=== PATIENT | male | born 1945 | race Caucasian/White ===

== ENCOUNTER 2018-05-18 14:30 | Outpatient (REF) | payer MEDICARE, SELFPAY ==
[2018-05-18 15:25] LABS: BUN 19 mg/dL (7-18); CREATININE 0.94 mg/dL (0.70-1.30)
== END 2018-05-18 14:50 ==
LOC: LBN 14:30
PROVIDERS: PCP Family Medicine; Visit Provider Family Medicine
DX: Z04.9 Encounter for examination and observation for unspecified reason (principal); F25.9 Schizoaffective disorder, unspecified; I10 Essential (primary) hypertension; E11.9 Type 2 diabetes mellitus without complications; E78.5 Hyperlipidemia, unspecified
CPT/HCPCS: 84520; 82565

== ENCOUNTER 2018-05-19 09:56 | Emergency (ER) | payer MEDICARE, SELFPAY ==
[2018-05-19] VITALS (33 sets, daily range): BP systolic 112–147; BP diastolic 71–85; PULSE 85–116; RESP 1–36; TEMP 36.3; O2SAT 88–99
--- NOTE | 2018-05-19 10:13 | DI.RAD_ITS ---
SYMPTOMS/DIAGNOSIS: CONCERN FOR ASPIRATION, SEVERE PORTABLE SEMI-ERECT CHEST: Comparison is made with exam performed earlier the same day. The lungs are not well inflated on the current exam. There is a question of mildly increased densities at the lung bases, likely reflecting atelectasis. Infiltrates or tiny effusions could not be excluded. The aorta is again noted to be tortuous. Mild scarring and fibrotic changes are again noted. IMPRESSION: Limited exam due to poor inflation. Question of bibasilar densities.
[2018-05-19] MEDS: Albuterol/Ipratropium 3 ML UPD VIAL UPD (10:27)
--- NOTE | 2018-05-19 10:30 | W.ED.GENAD ---
Discharge Plan Disposition Patient Disposition: SNF (LEVEL 1) [facility] Condition: Good Discharge Details Chief Complaint: SOB Clinical Impression: Mucus plugging of bronchi Reason For Visit: ZEINA Primary Care Provider: Tim Colon ED Provider: Goran Howell Home Meds and New Rx's Prescriptions: No Action metformin 500 MG tablet 500 mg PO BID@0800,1700 RF: 0 acetaminophen 325 MG tablet 650 mg PO 6X/DAY PRNRF: 0 clonazepam 0.5 MG tablet 0.5 mg PO DAILY RF: 0 levothyroxine 25 MCG tablet 25 mcg PO DAILY@0730 RF: 0 pravastatin 80 MG tablet 80 mg PO DAILY RF: 0 magnesium hydroxide [Milk of Magnesia] 30 ML suspension 30 ml PO PRN PRNRF: 0 tamsulosin 0.4 MG capsule 0.4 mg PO DAILY RF: 0 bisacodyl 10 MG suppository 10 mg [place] PRN PRNRF: 0 divalproex [Depakote ER] 500 MG tablet extended release 24 hr 500 mg PO DAILY RF: 0 docusate sodium [Colace] 100 MG capsule 100 mg PO BID RF: 0 risperidone 0.5 MG tablet 0.5 mg PO DAILY RF: 0 quetiapine 150 MG tablet extended release 24 hr 150 mg PO HS RF: 0 Finasteride 5 MG Tablet 5 mg PO HS RF: 0 potassium chloride [Klor-Con M10] 10 MEQ tablet,ER particles/crystals 20 meq PO BID RF: 0 furosemide 80 MG tablet 40 mg PO BID Qty: 0 RF: 0 aspirin 325 MG tablet 325 mg PO DAILY RF: 0 oseltamivir [Tamiflu] 75 MG capsule 75 mg PO DAILY RF: 0 Discharge Instructions Instructions: Acute Cough (ED) Additional Instructions: Please continue chest physiotherapy, aggressive suctioning, and pulmonary toilet to prevent any future mucous plugs. Please use expectorants as needed. If you notice any worsening of your symptoms, or any new symptoms such as vomiting, diarrhea, fever, chills, shortness of breath, chest pain, numbness, weakness, or fainting , please return immediately to the emergency department for reevaluation. Please follow up with your primary care provider as soon as possible for reassessment and reevaluation. As always, it was a pleasure participating in your medical care today. Medical Decision Making This is a 72-year-old male with a past medical history of dysphasia, diabetes, and dementia. No significant previous cardiac disease. He is DNR/DNI. Patient woke up this morning and had notable coughing episode, he is noted to be hypoxic on initial assessment by EMS, he was placed on a nonrebreather his oxygen came up to the 90s. Here in the emergency department he has no complaint of chest pain, but does demonstrate significantly rhonchorous breath sounds. We are about to start BiPAP on the patient had a second notable coughing episode and expectorated a large amount of sputum. After this his breathing notably improved and he had no additional need for supplemental oxygen after this. Although aspiration pneumonia is on the differential, this significantly increases likelihood of a mucous plug that was the cause of his initial symptomatology. We will still continue the workup for any potential infectious etiology with his associated tachycardia, with his notable improvement in oxygenation, I feel that the patient has a significantly improved respiratory status and does demonstrate notable stability. If his workup is relatively benign and his vital signs remained stable he may be a candidate for discharge back to his rehab facility with his resolution of his mucous plug. EKG 10: 03 Rate 111, [place] 132, QTc 416, QRS 82, sinus tachycardia, RSR in V1, nonspecific ST elevation. Patient has [address] elevation in lead III, no elevation in lead II or aVF. Questionable J-point RSR elevation in V1 no other ST elevation, no reciprocal ST depressions anywhere. EKG 10: 42 Rate 112, sinus tachycardia, intervals normal, no ST elevations or depressions whatsoever, no Q waves, no T wave inversions. Chest x-ray findings: FINDINGS: Lungs: Unremarkable. No consolidation. Pleural space: Unremarkable. No pleural effusion. No pneumothorax. Heart/Mediastinum: Unremarkable. No cardiomegaly. Bones/joints: Dextroscoliosis. Moderate thoracic spondylosis. 12:11 PM Patient's laboratory workup has returned relatively benign, minimal white count of 11.59, no bandemia. ABG demonstrates minimal retention with a PCO2 of 58, but normal pH, suggesting a chronic component. Electrolytes are normal, BUN creatinine ratio is slightly elevated suggesting mild dehydration which would correlate well with his clinical picture. Initial lactate was within normal limits and does not require redraw EKG, troponin are normal. After the expectorant of the mucous plug the patient continues to do very well. Chest x-ray is negative per virtual radiology. Being hemodynamically stable, nose showing no signs of significant respiratory compromise at this time, having a reassuring laboratory workup I feel he can be safely discharged home as a source of his initial symptomatology was a mucous plug. I did contact the physician cargo operations agent at his facility Dr. Belle, and discussed the case with her. She agreed with the assessment and plan as well as the plan for returning him back to the facility. I have extensively reviewed the treatment plan with the patient. I have addressed all patient concerns at this time. I have also discussed the plan with the facility physician and they agree with the current assessment and plan and have agreed to assume responsibility for the patient. All parties demonstrate verbal understanding and agreement with our assessment and plan at this time. HPI General Date/Time Provider Initiated Documentation: 05/19/18 10:02. HPI Narrative: This is a 72-year-old male with a past medical history of diabetes mellitus, dementia, hypertension, high cholesterol, hypothyroid, who presents today for evaluation of difficulty breathing. Per the nursing staff at his rehab facility he woke up this morning coughing, when EMS arrived his oxygen was noted to be 79-82%. He normally does not use any oxygen for supplementation. They put him on a nonrebreather and the patient came up to the 90s, physical exam by paramedics demonstrated significantly decreased/absent breath sounds in the right lower lung chung, with severe rhonchi. The patient does have a history of using thickened liquids, no history of aspiration in the past, however he does have a history of mild dysphagia. Currently the patient denies any significant complaints. He denies any chest pain, arm pain or neck pain. He states he feels much better with nonrebreather. He denies any recent hemoptysis or choking episodes. He denies any vomiting or diarrhea. He has no other complaints at this time. He denies any recent pertinent surgeries or pertinent family history. Related Data Home Medications Medication Instructions Recorded Confirmed Finasteride 5 mg PO HS 04/18/17 05/19/18 acetaminophen 650 mg PO 6X/DAY PRN 04/18/17 05/19/18 bisacodyl 10 mg KS PRN PRN 04/18/17 05/19/18 clonazepam 0.5 mg PO DAILY 04/18/17 05/19/18 divalproex [Depakote ER] 500 mg PO DAILY 04/18/17 05/19/18 docusate sodium [Colace] 100 mg PO BID 04/18/17 05/19/18 levothyroxine 25 mcg PO DAILY@0730 04/18/17 05/19/18 magnesium hydroxide [Milk of 30 ml PO PRN PRN 04/18/17 05/19/18 Magnesia] metformin 500 mg PO BID@0800,1700 04/18/17 05/19/18 pravastatin 80 mg PO DAILY 04/18/17 05/19/18 quetiapine 150 mg PO HS 04/18/17 05/19/18 risperidone 0.5 mg PO DAILY 04/18/17 05/19/18 tamsulosin 0.4 mg PO DAILY 04/18/17 05/19/18 furosemide 40 mg PO BID #0 04/20/17 05/19/18 potassium chloride [Klor-Con M10] 20 meq PO BID 04/20/17 05/19/18 aspirin 325 mg PO DAILY 10/15/17 05/19/18 oseltamivir [Tamiflu] 75 mg PO DAILY 10/15/17 05/19/18 Previous Rx's Medication Instructions Recorded furosemide 40 mg PO BID #0 04/20/17 potassium chloride [Klor-Con M10] 20 meq PO BID 04/20/17 Allergies Allergy/AdvReac Type Severity Reaction Status Date / Time simvastatin Allergy Unverified 05/19/18 11:08 General Stated Complaint: SOB MARY: 2 Review of Systems Review of Systems All systems reviewed & are unremarkable except as noted in HPI and below Exam Narrative Exam Narrative: 1.Const: Well-nourished, Well-developed, appearing stated age 2.Eyes: PERRL, no conjunctival injection, and symmetrical lids. 3.ENT: Atraumatic external nose and ears. Dry MM. Neck: Symmetric, trachea midline, No thyromegaly. 4.CVS: +S1/S2, No murmurs or gallops. Peripheral pulses 2+ and equal in all extremities. Brisk capillary refill in all extremities. 5.RESP: Unlabored respiratory effort. Severe rhonchi throughout, decreased breath sounds in the right lower lung chung. Mild crackles throughout, no significant wheezes 6.GI: Soft, Nontender/Nondistended, No hepatosplenomegaly. No guarding or rebound. 7.MSK: Normocephalic/Atraumatic, Extremities w/o deformity or ttp No cyanosis or clubbing, Normal movement of all extremities 8.Skin: Warm, Dry. No rashes or lesions. 9.Neuro: layer out II-XII grossly intact. Sensation grossly intact, no focal neurologic deficits. 10.Psych: (AAO) x3. Appropriate mood and affect, patient demonstrates an intact gag reflex, he is able to move his nonrebreather without difficulty. Shows no signs of significant confusion or obtundation. Course Vital Signs Temperature 36.3 C L 05/19/18 10:02 Pulse 111 H 05/19/18 10:02 Respiratory Rate 21 05/19/18 10:02 Blood Pressure 147/81 H 05/19/18 10:02 Pulse Oximetry 94 L 05/19/18 10:02 Temperature 36.3 C L 05/19/18 10:02 Temperature Source Skin 05/19/18 10:02 Pulse 111 H 05/19/18 10:02 Respiratory Rate 21 05/19/18 10:02 Respiratory Effort Non-Labored 05/19/18 10:02 Blood Pressure 147/81 H 05/19/18 10:02 Blood Pressure Position Supine 05/19/18 10:02 Pulse Oximetry 94 L 05/19/18 10:02 Oxygen Delivery Method Non-Rebreather 05/19/18 10:02 Oxygen Flow Rate 15 05/19/18 10:02 End Tidal Co2 0 05/19/18 10:02 Pain Level 0 05/19/18 10:02 Lab/Test Results Lab/Test Results: 05/19/18 10:12 Blood Blood Culture - Pending 05/19/18 10:12 Blood Blood Culture - Pending
--- NOTE | 2018-05-19 10:36 | ED.GENADUL_ITS ---
Discharge Plan Disposition Patient Disposition: SNF (LEVEL 1) [facility] Condition: Good Discharge Details Chief Complaint: SOB Clinical Impression: Mucus plugging of bronchi Reason For Visit: ZEINA Primary Care Provider: Tim Colon ED Provider: Goran Howell Home Meds and New Rx's Prescriptions: No Action metformin 500 MG tablet 500 mg PO BID@0800,1700 RF: 0 acetaminophen 325 MG tablet 650 mg PO 6X/DAY PRNRF: 0 clonazepam 0.5 MG tablet 0.5 mg PO DAILY RF: 0 levothyroxine 25 MCG tablet 25 mcg PO DAILY@0730 RF: 0 pravastatin 80 MG tablet 80 mg PO DAILY RF: 0 magnesium hydroxide [Milk of Magnesia] 30 ML suspension 30 ml PO PRN PRNRF: 0 tamsulosin 0.4 MG capsule 0.4 mg PO DAILY RF: 0 bisacodyl 10 MG suppository 10 mg [place] PRN PRNRF: 0 divalproex [Depakote ER] 500 MG tablet extended release 24 hr 500 mg PO DAILY RF: 0 docusate sodium [Colace] 100 MG capsule 100 mg PO BID RF: 0 risperidone 0.5 MG tablet 0.5 mg PO DAILY RF: 0 quetiapine 150 MG tablet extended release 24 hr 150 mg PO HS RF: 0 Finasteride 5 MG Tablet 5 mg PO HS RF: 0 potassium chloride [Klor-Con M10] 10 MEQ tablet,ER particles/crystals 20 meq PO BID RF: 0 furosemide 80 MG tablet 40 mg PO BID Qty: 0 RF: 0 aspirin 325 MG tablet 325 mg PO DAILY RF: 0 oseltamivir [Tamiflu] 75 MG capsule 75 mg PO DAILY RF: 0 Discharge Instructions Instructions: Acute Cough (ED) Additional Instructions: Please continue chest physiotherapy, aggressive suctioning, and pulmonary toilet to prevent any future mucous plugs. Please use expectorants as needed. If you notice any worsening of your symptoms, or any new symptoms such as vomiting, diarrhea, fever, chills, shortness of breath, chest pain, numbness, weakness, or fainting , please return immediately to the emergency department for reevaluation. Please follow up with your primary care provider as soon as possible for reassessment and reevaluation. As always, it was a pleasure participating in your medical care today. Medical Decision Making This is a 72-year-old male with a past medical history of dysphasia, diabetes, and dementia. No significant previous cardiac disease. He is DNR/ DNI. Patient woke up this morning and had notable coughing episode, he is noted to be hypoxic on initial assessment by EMS, he was placed on a nonrebreather his oxygen came up to the 90s. Here in the emergency department he has no complaint of chest pain, but does demonstrate significantly rhonchorous breath sounds. We are about to start BiPAP on the patient had a second notable coughing episode and expectorated a large amount of sputum. After this his breathing notably improved and he had no additional need for supplemental oxygen after this. Although aspiration pneumonia is on the differential, this significantly increases likelihood of a mucous plug that was the cause of his initial symptomatology. We will still continue the workup for any potential infectious etiology with his associated tachycardia, with his notable improvement in oxygenation, I feel that the patient has a significantly improved respiratory status and does demonstrate notable stability. If his workup is relatively benign and his vital signs remained stable he may be a candidate for discharge back to his rehab facility with his resolution of his mucous plug. EKG 10: 03 Rate 111, [place] 132, QTc 416, QRS 82, sinus tachycardia, RSR in V1, nonspecific ST elevation. Patient has [address] elevation in lead III, no elevation in lead II or aVF. Questionable J-point RSR elevation in V1 no other ST elevation, no reciprocal ST depressions anywhere. EKG 10: 42 Rate 112, sinus tachycardia, intervals normal, no ST elevations or depressions whatsoever, no Q waves, no T wave inversions. Chest x-ray findings: FINDINGS: Lungs: Unremarkable. No consolidation. Pleural space: Unremarkable. No pleural effusion. No pneumothorax. Heart/Mediastinum: Unremarkable. No cardiomegaly. Bones/joints: Dextroscoliosis. Moderate thoracic spondylosis. 12:11 PM Patient's laboratory workup has returned relatively benign, minimal white count of 11.59, no bandemia. ABG demonstrates minimal retention with a PCO2 of 58, but normal pH, suggesting a chronic component. Electrolytes are normal, BUN creatinine ratio is slightly elevated suggesting mild dehydration which would correlate well with his clinical picture. Initial lactate was within normal limits and does not require redraw EKG, troponin are normal. After the expectorant of the mucous plug the patient continues to do very well. Chest x- ray is negative per virtual radiology. Being hemodynamically stable, nose showing no signs of significant respiratory compromise at this time, having a reassuring laboratory workup I feel he can be safely discharged home as a source of his initial symptomatology was a mucous plug. I did contact the physician consulting hr professional at his facility Dr. Belle, and discussed the case with her. She agreed with the assessment and plan as well as the plan for returning him back to the facility. I have extensively reviewed the treatment plan with the patient. I have addressed all patient concerns at this time. I have also discussed the plan with the facility physician and they agree with the current assessment and plan and have agreed to assume responsibility for the patient. All parties demonstrate verbal understanding and agreement with our assessment and plan at this time. HPI General Date/Time Provider Initiated Documentation: 05/19/18 10:02 . HPI Narrative: This is a 72-year-old male with a past medical history of diabetes mellitus, dementia, hypertension, high cholesterol, hypothyroid, who presents today for evaluation of difficulty breathing. Per the nursing staff at his rehab facility he woke up this morning coughing, when EMS arrived his oxygen was noted to be 79-82%. He normally does not use any oxygen for supplementation. They put him on a nonrebreather and the patient came up to the 90s, physical exam by paramedics demonstrated significantly decreased/ absent breath sounds in the right lower lung chung, with severe rhonchi. The patient does have a history of using thickened liquids, no history of aspiration in the past, however he does have a history of mild dysphagia. Currently the patient denies any significant complaints. He denies any chest pain, arm pain or neck pain. He states he feels much better with nonrebreather. He denies any recent hemoptysis or choking episodes. He denies any vomiting or diarrhea. He has no other complaints at this time. He denies any recent pertinent surgeries or pertinent family history. Related Data Home Medications Medication Instructions Recorded Confirmed Finasteride 5 mg PO HS 04/18/17 05/19/18 acetaminophen 650 mg PO 6X/DAY PRN 04/18/17 05/19/18 bisacodyl 10 mg [place] PRN PRN 04/18/17 05/19/18 clonazepam 0.5 mg PO DAILY 04/18/17 05/19/18 divalproex [Depakote ER] 500 mg PO DAILY 04/18/17 05/19/18 docusate sodium [Colace] 100 mg PO BID 04/18/17 05/19/18 levothyroxine 25 mcg PO DAILY@0730 04/18/17 05/19/18 magnesium hydroxide [Milk of 30 ml PO PRN PRN 04/18/17 05/19/18 Magnesia] metformin 500 mg PO BID@0800,1700 04/18/17 05/19/18 pravastatin 80 mg PO DAILY 04/18/17 05/19/18 quetiapine 150 mg PO HS 04/18/17 05/19/18 risperidone 0.5 mg PO DAILY 04/18/17 05/19/18 tamsulosin 0.4 mg PO DAILY 04/18/17 05/19/18 furosemide 40 mg PO BID #0 04/20/17 05/19/18 potassium chloride [Klor-Con M10] 20 meq PO BID 04/20/17 05/19/18 aspirin 325 mg PO DAILY 10/15/17 05/19/18 oseltamivir [Tamiflu] 75 mg PO DAILY 10/15/17 05/19/18 Previous Rx's Medication Instructions Recorded furosemide 40 mg PO BID #0 04/20/17 potassium chloride [Klor-Con M10] 20 meq PO BID 04/20/17 Allergies Allergy/AdvReac Type Severity Reaction Status Date / Time simvastatin Allergy Unverified 05/19/18 11:08 General Stated Complaint: SOB MARY: 2 Review of Systems Review of Systems All systems reviewed & are unremarkable except as noted in HPI and below Exam Narrative Exam Narrative: 1.Const: Well-nourished, Well-developed, appearing stated age 2.Eyes: PERRL, no conjunctival injection, and symmetrical lids. 3.ENT: Atraumatic external nose and ears. Dry MM. Neck: Symmetric, trachea midline, No thyromegaly. 4.CVS: +S1/S2, No murmurs or gallops. Peripheral pulses 2+ and equal in all extremities. Brisk capillary refill in all extremities. 5.RESP: Unlabored respiratory effort. Severe rhonchi throughout, decreased breath sounds in the right lower lung chung. Mild crackles throughout, no significant wheezes 6.GI: Soft, Nontender/Nondistended, No hepatosplenomegaly. No guarding or rebound. 7.MSK: Normocephalic/Atraumatic, Extremities w/o deformity or ttp No cyanosis or clubbing, Normal movement of all extremities 8.Skin: Warm, Dry. No rashes or lesions. 9.Neuro: hedge fund principal II-XII grossly intact. Sensation grossly intact, no focal neurologic deficits. 10.Psych: (AAO) x3. Appropriate mood and affect, patient demonstrates an intact gag reflex, he is able to move his nonrebreather without difficulty. Shows no signs of significant confusion or obtundation. Course Vital Signs Temperature 36.3 C L 05/19/18 10:02 Pulse 111 H 05/19/18 10:02 Respiratory Rate 21 05/19/18 10:02 Blood Pressure 147/81 H 05/19/18 10:02 Pulse Oximetry 94 L 05/19/18 10:02 Temperature 36.3 C L 05/19/18 10:02 Temperature Source Skin 05/19/18 10:02 Pulse 111 H 05/19/18 10:02 Respiratory Rate 21 05/19/18 10:02 Respiratory Effort Non-Labored 05/19/18 10:02 Blood Pressure 147/81 H 05/19/18 10:02 Blood Pressure Position Supine 05/19/18 10:02 Pulse Oximetry 94 L 05/19/18 10:02 Oxygen Delivery Method Non-Rebreather 05/19/18 10:02 Oxygen Flow Rate 15 05/19/18 10:02 End Tidal Co2 0 05/19/18 10:02 Pain Level 0 05/19/18 10:02 Lab/Test Results Lab/Test Results: 05/19/18 10:12 Blood Blood Culture - Pending 05/19/18 10:12 Blood Blood Culture - Pending
--- NOTE | 2018-05-19 10:39 | DI.VRAD_ITS ---
EXAM: XR Chest, 1 View EXAM DATE/TIME: 05/19/2018 10:16 AM CLINICAL HISTORY: 72 years old, male; Signs and symptoms; Other: Concern for aspiration, severe lowe rhonchi TECHNIQUE: XR of the chest, 1 view. COMPARISON: CR CHEST 2 VIEWS PA,LAT 04/18/2017 1:17 AM FINDINGS: Lungs: Unremarkable. No consolidation. Pleural space: Unremarkable. No pleural effusion. No pneumothorax. Heart/Mediastinum: Unremarkable. No cardiomegaly. Bones/joints: Dextroscoliosis. Moderate thoracic spondylosis. IMPRESSION: Dictated and Authenticated by: Tim Myers MD. Ordering:FIONA GOODMAN MD
[2018-05-19 10:55] LABS: BE (Venous) 6.2 mmol/L (-3-3); HCO3 (Venous) 32 mmol/L (22-28); O2 Sat (Venous) 48 % (70-80); TCO2 (Venous) 30 mmol/L (22-29); pCO2 (Venous) 58 mm/Hg (34-47); pH (Venous) 7.35 (7.32-7.43); pO2 (Venous) 31 mm/Hg (28-44)
[2018-05-19 10:56] LABS: Abs Immature Grans 0.05 k/cumm (0.0-0.09); Absolute Basophil Count 0.02 k/cumm (0.0-0.2); Absolute Lymphocyte Count 1.56 k/cumm (1.2-3.4); Absolute Monocyte Count 0.79 k/cumm (0.11-0.7); Basophils % 0.2; Eosinophils % 0.9; HCT 35.5 % (40.0-50.0); HGB 10.6 g/dL (13.5-17.5); Immature Grans % 0.4; Lymphocytes % 13.5; Mean Corp. HGB Concentration 29.9 g/dL (32.0-36.0); Mean Corpuscular Hemoglobin 26.8 pg (27.0-33.0); Mean Corpuscular Volume 89.6 fL (80-95); Mean Platelet Volume 9.2 fL (8.0-11.0); Monocytes % 6.8; Neutrophils % 78.2; Platelet Count 396 x1000/uL (130-400); RBC 3.96 m/cumm (4.50-6.00); RBC Distribution Width 14.3 % (11.8-14.1); White Blood Cell Count 11.59 k/cumm (4.4-10.8)
[2018-05-19 10:59] LABS: Absolute Neutrophil Count 9.06 k/cumm (1.2-6.7)
[2018-05-19] MEDS: methylPREDNISolone SUCC 125 MG VIAL IVP (11:00)
[2018-05-19] MEDS: Aspirin 300 MG SUPP PR (11:00)
[2018-05-19] MEDS: Normal Saline 500 ML 1000 ML IV (11:00)
[2018-05-19 11:15] LABS: ALT 14 U/L (12-78); AST 23 U/L (15-37); Albumin 2.9 g/dL (3.4-5.0); Alkaline Phosphatase 97 U/L (46-116); Anion Gap 10.2 mmol/L (3-11); BUN 21 mg/dL (7-18); Bilirubin, Total 0.2 mg/dL (0.2-1.0); CO2 31.8 mmol/L (21.0-32.0); CREATININE 1.08 mg/dL (0.70-1.30); Calcium 9.8 mg/dL (8.5-10.1); Chloride 101 mmol/L (98-107); Glucose 157 mg/dL (70-100); Potassium 3.9 mmol/L (3.5-5.1); Sodium 143 mmol/L (136-145); Total Protein 8.4 g/dL (6.4-8.2)
[2018-05-19 11:20] LABS: Lactate 1.5 mmol/L (0.6-1.4)
[2018-05-19 11:34] LABS: Troponin I < 0.02 ng/mL (0.00-0.06)
== END 2018-05-19 12:47 | disposition skilled nursing facility (03) ==
PROVIDERS: Emergency Provider Student in an Organized Health Care Education/Training Program; PCP Family Medicine
DX: J98.09 Other diseases of bronchus, not elsewhere classified (principal); R00.0 Tachycardia, unspecified; I10 Essential (primary) hypertension; E11.9 Type 2 diabetes mellitus without complications; Z79.84 Long term (current) use of oral hypoglycemic drugs
CPT/HCPCS: 36415; 80053; 82805; 87040; 93005; 94640; 96361; 96374; 99285; 71045; 83605; 84484; 85025; 93010; J2930; J7620

== ENCOUNTER 2018-05-19 17:54 | Emergency (ER) | payer MEDICARE, SELFPAY ==
[2018-05-19] VITALS (29 sets, daily range): BP systolic 92–121; BP diastolic 59–74; PULSE 72–96; RESP 11–19; TEMP 36.6; O2SAT 91–100
[2018-05-19 18:19] LABS: BE (Venous) 6.3 mmol/L (-3-3); HCO3 (Venous) 31 mmol/L (22-28); O2 Sat (Venous) 97 % (70-80); TCO2 (Venous) 29 mmol/L (22-29); pCO2 (Venous) 47 mm/Hg (34-47); pH (Venous) 7.42 (7.32-7.43); pO2 (Venous) 86 mm/Hg (28-44)
[2018-05-19 18:21] LABS: Abs Immature Grans 0.03 k/cumm (0.0-0.09); Absolute Lymphocyte Count 0.39 k/cumm (1.2-3.4); Absolute Monocyte Count 0.06 k/cumm (0.11-0.7); Absolute Neutrophil Count 6.14 k/cumm (1.2-6.7); HCT 30.8 % (40.0-50.0); HGB 9.4 g/dL (13.5-17.5); Immature Grans % 0.5; Lymphocytes % 5.9; Mean Corp. HGB Concentration 30.5 g/dL (32.0-36.0); Mean Corpuscular Hemoglobin 27.2 pg (27.0-33.0); Mean Platelet Volume 8.8 fL (8.0-11.0); Monocytes % 0.9; Neutrophils % 92.7; Platelet Count 328 x1000/uL (130-400); RBC 3.46 m/cumm (4.50-6.00); RBC Distribution Width 14.3 % (11.8-14.1); White Blood Cell Count 6.62 k/cumm (4.4-10.8)
[2018-05-19 18:32] LABS: Ammonia 14 umol/L (11-32)
--- NOTE | 2018-05-19 18:37 | ED.GENADUL_ITS ---
Discharge Plan Disposition Patient Disposition: HOME Condition: Stable Discharge Details Chief Complaint: AMS/LOC Clinical Impression: Fatigue, Vascular abnormality of brain Reason For Visit: ZEINA Primary Care Provider: Tim Colon ED Provider: Goran Howell Home Meds and New Rx's Prescriptions: No Action metformin 500 MG tablet 500 mg PO BID@0800,1700 RF: 0 acetaminophen 325 MG tablet 650 mg PO 6X/DAY PRNRF: 0 clonazepam 0.5 MG tablet 0.5 mg PO DAILY RF: 0 levothyroxine 25 MCG tablet 25 mcg PO DAILY@0730 RF: 0 pravastatin 80 MG tablet 80 mg PO DAILY RF: 0 magnesium hydroxide [Milk of Magnesia] 30 ML suspension 30 ml PO PRN PRNRF: 0 tamsulosin 0.4 MG capsule 0.4 mg PO DAILY RF: 0 bisacodyl 10 MG suppository 10 mg SC PRN PRNRF: 0 divalproex [Depakote ER] 500 MG tablet extended release 24 hr 500 mg PO DAILY RF: 0 docusate sodium [Colace] 100 MG capsule 100 mg PO BID RF: 0 risperidone 0.5 MG tablet 0.5 mg PO DAILY RF: 0 quetiapine 150 MG tablet extended release 24 hr 150 mg PO HS RF: 0 Finasteride 5 MG Tablet 5 mg PO HS RF: 0 potassium chloride [Klor-Con M10] 10 MEQ tablet,ER particles/crystals 20 meq PO BID RF: 0 furosemide 80 MG tablet 40 mg PO BID Qty: 0 RF: 0 aspirin 325 MG tablet 325 mg PO DAILY RF: 0 oseltamivir [Tamiflu] 75 MG capsule 75 mg PO DAILY RF: 0 Duoneb 3 ml Inhalation PRN PRNRF: 0 Discharge Instructions Additional Instructions: The case has been discussed with Dr. Aceves. Patient will most likely require repeat head CT or MRI in the next 24-48 hours. His goals at this time are to be kept comfortable. The case has been discussed with his family and they understand that he may be descending towards the end of his life, however his primary goal is to remain comfortable during this phase. Medical Decision Making This is a pleasant 72-year-old male who is DNR/DNI on comfort measures , who presents today for evaluation of fatigue and hypoxemia. Per nursing staff at his rehab facility the patient was again hypoxic and difficult to arouse. On arrival here to the ER he was saturating at 93-94% on room air. He was slightly difficult to arouse but would respond to commands. Initial GCS was 14. Laboratory workup was performed, and his labs are notably improved from prior labs earlier today. No significant white count, or leukocytosis. Electrolytes are all normal. Renal function normal, troponin normal, EKG benign. VBG demonstrates a PCO2 of 47 and a normal pH. After being here for about 15-20 minutes the patient seemed to wake up. After which she began acting much more himself, he was interacting, smiling, and waving to me through the windows. Patient's chest x-ray per radiology shows evidence of atelectasis. With a normal white count, no fever, no signs of infection I feel that infection is less likely. CT head did show a questionable 8 mm focus of increased density in the left frontoparietal region which could represent artifact or small parenchymal hemorrhage. Reevaluation the patient continues to show no signs of trauma, and review of history with nursing staff elicits no history of trauma. The patient's neurologic status appears at baseline. He is acting and interacting normally with myself and staff. Oxygen saturation is normal, vitals are normal, and laboratory workup is very benign. With potential intraparenchymal bleed versus artifact, I did bring the provider at the facility and the patient's family and the patient into the conversation. I reconfirmed with the patient and his family that the patient's specific request are DNR, DNI, comfort measures. Family's primary concern for the patient is that he is comfortable during the stages of his life. They confirmed that they do not want any clot busters, pounding on his chest, or intubation, or surgery. I did discuss the findings and the family's thoughts with Dr. Powers, there are shared decision making process with Dr. Powers, and the family and the patient we feel that with comfort being his primary goal, normal laboratory workup, normal vital signs, he can be discharged back to his facility, with comfort as a priority. Repeat CT scan will be performed in the next 24-48 hours to reevaluate any potential worsening of the bleed versus reevaluation of the potential artifact. I made it very clear to the family that due to the patient's multiple comorbidities, and the worse case scenario for the CT scan findings that this may be his last night, or he may continue on in life without any difficulties. Family understands this, as well as the risks, benefits, and future prognostic indicators that are present for the patient. Patient will be discharged back via [facility] for maintained comfort, and monitoring. EKG 18: 40 Rate 83, intervals normal, sinus rhythm, no ST elevations or depressions, no T wave inversions. Questionable Q wave in lead III. No other acute abnormalities. CXR 1. New opacification in the retrocardiac regions and along the right costophrenic angle that could represent atelectasis or infection. Small right pleural effusion not excluded. 2.The mediastinum and hilar regions appear larger than on prior examination. Lower lung volumes and differences in rotation may be contributing however correlation is recommended. If mediastinal or hilar abnormality is a concern, CT scan could be considered. Other findings as above. CT Head IMPRESSION: 1.Series 3 image 39 demonstrates a 8mm focus increased density within the left frontoparietal region laterally. This could represent artifact. Small parenchymal hemorrhage not excluded. Short term followup could be considered. Alternatively, to further evaluate this finding or if symptoms remain concerning, MRI could be considered. HPI General Date/Time Provider Initiated Documentation: 05/19/18 18:02 . HPI Narrative: This is a 72-year-old male with a past medical history of diabetes mellitus, dementia, hypertension, high cholesterol, hypothyroid, who presents today for evaluation of difficulty breathing. The patient was here earlier this morning, at his rehab facility he woke up with a coughing episode, he was noted to be hypoxic, including on the 15 L via nasal cannula nonrebreather. He was brought to the ER for further evaluation. On his initial assessment he had rhonchorous breath sounds, mild hypoxemia, he is DNR/ DNI, and did not want to be intubated. We are about to start BiPAP at that time when he expectorated a huge mucous plug, after which his breathing issues completely resolved, he had no hypoxemia, or other abnormalities. After his laboratory and imaging workup returned relatively benign he was eventually discharged back to his facility with normal vital signs, no signs of hypoxemia, and normal mental status exam, and clear instructions for his care. At his facility he did well throughout the rest of the evening, however as the night went on someone came in to wake him up for dinner they found him slumped over in his chair. At that time he stated that his oxygen saturations were low. They had a difficult time arousing him. EMS was contacted and on their arrival his oxygen saturations were normal. He was brought to the ER for further evaluation. On arrival here the patient would respond to stimulation but did appear notably more tired than on her initial assessment earlier today. He had no complaint of chest pain, headache, and showed no signs of difficulty breathing. He was 100% on room air upon his arrival here. Patient currently has no complaints. No other modifying factors. Related Data Home Medications Medication Instructions Recorded Confirmed Finasteride 5 mg PO HS 04/18/17 05/19/18 acetaminophen 650 mg PO 6X/DAY PRN 04/18/17 05/19/18 bisacodyl 10 mg SC PRN PRN 04/18/17 05/19/18 clonazepam 0.5 mg PO DAILY 04/18/17 05/19/18 divalproex [Depakote ER] 500 mg PO DAILY 04/18/17 05/19/18 docusate sodium [Colace] 100 mg PO BID 04/18/17 05/19/18 levothyroxine 25 mcg PO DAILY@0730 04/18/17 05/19/18 magnesium hydroxide [Milk of 30 ml PO PRN PRN 04/18/17 05/19/18 Magnesia] metformin 500 mg PO BID@0800,1700 04/18/17 05/19/18 pravastatin 80 mg PO DAILY 04/18/17 05/19/18 quetiapine 150 mg PO HS 04/18/17 05/19/18 risperidone 0.5 mg PO DAILY 04/18/17 05/19/18 tamsulosin 0.4 mg PO DAILY 04/18/17 05/19/18 furosemide 40 mg PO BID #0 04/20/17 05/19/18 potassium chloride [Klor-Con M10] 20 meq PO BID 04/20/17 05/19/18 aspirin 325 mg PO DAILY 10/15/17 05/19/18 oseltamivir [Tamiflu] 75 mg PO DAILY 10/15/17 05/19/18 Duoneb 3 ml INHALATION PRN PRN 05/19/18 05/19/18 Previous Rx's Medication Instructions Recorded furosemide 40 mg PO BID #0 04/20/17 potassium chloride [Klor-Con M10] 20 meq PO BID 04/20/17 Allergies Allergy/AdvReac Type Severity Reaction Status Date / Time simvastatin Allergy Unverified 05/19/18 11:08 General Stated Complaint: AMS/LOC MARY: 3 Review of Systems Review of Systems All systems reviewed & are unremarkable except as noted in HPI and below Exam Narrative Exam Narrative: 1.Const: Well-nourished, Well-developed, appearing stated age. 2.Eyes: PERRL, no conjunctival injection, and symmetrical lids. 3.ENT: Atraumatic external nose and ears. Moist MM. Neck: Symmetric, trachea midline, No thyromegaly. 4.CVS: +S1/S2, No murmurs or gallops. Peripheral pulses 2+ and equal in all extremities. Brisk capillary refill in all extremities. 5.RESP: Unlabored respiratory effort. Minimal crackles, no significant wheezes. Minimal upper respiratory rhonchi. Improved breath sounds from evaluation earlier today. 6.GI: Soft, Nontender/Nondistended, No hepatosplenomegaly. No guarding or rebound. 7.MSK: Normocephalic/Atraumatic, Extremities w/o deformity or ttp No cyanosis or clubbing, Normal movement of all extremities 8.Skin: Warm, Dry. No rashes or lesions. 9.Neuro: certified registered nurse anesthetist II-XII grossly intact. Sensation grossly intact, no focal neurologic deficits. Patient is able to move all extremities. Is able to smile. He is able to follow commands. patient is able to hold bilateral arms up without difficult, patient also holds legs up bilaterally without any drop, sensation appears intact for touch in hands and feet bilaterally. 10.Psych: (AAO) x3. Appropriate mood and affect. Patient does appear fatigued, but shows no other significant abnormalities. He is easily arousable. Course Vital Signs Pulse 85 05/19/18 18:00 Respiratory Rate 16 05/19/18 18:00 Blood Pressure 114/68 05/19/18 18:00 Pulse Oximetry 100 05/19/18 18:00 Pulse 85 05/19/18 18:00 Respiratory Rate 16 05/19/18 18:00 Blood Pressure 114/68 05/19/18 18:00 Pulse Oximetry 100 05/19/18 18:00 Oxygen Delivery Method Room Air 05/19/18 18:00 Oxygen Flow Rate 0 05/19/18 18:00 Lab/Test Results Lab/Test Results: Laboratory Tests Range/Units 05/19/18 05/19/18 05/19/18 18:03 18:03 18:03 WBC (4.4-10.8) k/cumm 6.62 D RBC (4.50-6.00) m/cumm 3.46 L Hgb (13.5-17.5) g/dL 9.4 L Hct (40.0-50.0) % 30.8 L MCV (80-95) fL 89.0 MCH (27.0-33.0) pg 27.2 MCHC (32.0-36.0) g/dL 30.5 L RDW (11.8-14.1) % 14.3 H Plt Count (130-400) x1000/uL 328 MPV (8.0-11.0) fL 8.8 Immature Gran % 0.5 Neutrophils % 92.7 Lymphocytes % 5.9 Monocytes % 0.9 Eosinophils % 0.0 Basophils % 0.0 Absolute Neutrophils (1.2-6.7) k/cumm 6.14 Absolute Lymphocytes (1.2-3.4) k/cumm 0.39 L Absolute Monocytes (0.11-0.7) k/cumm 0.06 L Absolute Eosinophils (0.0-0.7) k/cumm 0.00 Absolute Basophils (0.0-0.2) k/cumm 0.00 VBG pH (7.32-7.43) 7.42 VBG pCO2 (34-47) mm/Hg 47 VBG pO2 (28-44) mm/Hg 86 H VBG HCO3 (22-28) mmol/L 31 H VBG Total CO2 (22-29) mmol/L 29 VBG O2 Saturation (70-80) % 97 H VBG Base Excess (-3-3) mmol/L 6.3 H Ammonia (11-32) umol/L 14
[2018-05-19 18:43] LABS: ALT 12 U/L (12-78); AST 22 U/L (15-37); Albumin 2.5 g/dL (3.4-5.0); Alkaline Phosphatase 81 U/L (46-116); Anion Gap 8.3 mmol/L (3-11); BUN 18 mg/dL (7-18); Bilirubin, Total 0.2 mg/dL (0.2-1.0); CO2 29.7 mmol/L (21.0-32.0); Chloride 104 mmol/L (98-107); Glucose 151 mg/dL (70-100); Potassium 4.2 mmol/L (3.5-5.1); Sodium 142 mmol/L (136-145); TSH 1.04 uIU/mL (0.358-3.74); Total Protein 7.4 g/dL (6.4-8.2)
[2018-05-19 18:44] LABS: Troponin I < 0.02 ng/mL (0.00-0.06)
--- NOTE | 2018-05-19 19:15 | DI.CT_ITS ---
SYMPTOMS/DIAGNOSIS: CONFUSION NONCONTRAST HEAD CT: Comparison is made with September,. Atrophy and ventriculomegaly are again noted, unchanged. No infarct, hemorrhage or mass is seen. The sinuses, mastoid air cells and orbits are unremarkable. IMPRESSION: Atrophy and ventriculomegaly. No acute abnormality.
--- NOTE | 2018-05-19 19:18 | DI.RAD_ITS ---
SYMPTOMS/DIAGNOSIS: CONCERN FOR ASPIRATION, SEVERE LOWER RHONCHI PORTABLE CHEST: Comparison is made with March,. The heart size is normal. The aorta is tortuous, unchanged. There is mild underlying left lower lobe scarring. No acute infiltrate, effusion or pulmonary edema is seen. IMPRESSION: No acute abnormality.
--- NOTE | 2018-05-19 20:12 | DI.VRAD_ITS ---
EXAM: CT Head Without Intravenous Contrast EXAM DATE/TIME: 05/19/2018 6:05 PM CLINICAL HISTORY: 72 years old, male; Pain; Other: Confusion TECHNIQUE: Axial computed tomography images of the head/brain without intravenous contrast. All CT scans at this facility use at least one of these dose optimization techniques: automated exposure control; mA and/or kV adjustment per patient size (includes targeted exams where dose is matched to clinical indication); or iterative reconstruction. Coronal and sagittal reformatted images were created and reviewed. COMPARISON: CT HEAD WITHOUT CONTRAST 10/15/2017 4:15 PM FINDINGS: Brain: Series 3 image 39 demonstrates a 8mm focus increased density within the left frontoparietal region. This could represent artifact. Small parenchymal hemorrhage not excluded. Short term followup could be considered. There is brain atrophy and periventricular white matter ischemic changes. Vascular calcifications are seen. There is probable encephalomalacia in the high right frontal region on series 3 image 49. Ventricles: Ventriculomegaly, likely compensatory. Bones/joints: Normal. No acute fracture. Sinuses: No fluid levels. Mastoid air cells: Normal as visualized. No mastoid effusion. Soft tissues: Normal. IMPRESSION: 1.Series 3 image 39 demonstrates a 8mm focus increased density within the left frontoparietal region laterally. This could represent artifact. Small parenchymal hemorrhage not excluded. Short term followup could be considered. Alternatively, to further evaluate this finding or if symptoms remain concerning, MRI could be considered. 2. Other findings as above. Dictated and Authenticated by: Jane Alexander MD. Ordering:FIONA GOODMAN MD
--- NOTE | 2018-05-19 20:17 | DI.VRAD_ITS ---
EXAM: XR Chest, 1 View EXAM DATE/TIME: 05/19/2018 6:22 PM CLINICAL HISTORY: 72 years old, male; Pain; Chest pain; Type not specified; Patient HX: Hypoxemia TECHNIQUE: XR of the chest, 1 view. COMPARISON: SC XR PORTABLE CHEST AP 05/19/2018 10:27 AM FINDINGS: Lungs: There is new opacification in the retrocardiac regions and along the right costophrenic angle that could represent atelectasis or infection. A small right pleural effusion is not excluded. There are low lung volumes. Pleural space: No pneumothorax. Heart/Mediastinum: The mediastinum and hilar regions appear larger than on prior examination. Lower lung volumes and differences in rotation may be contributing however correlation is recommended. If mediastinal or hilar abnormality is a concern, CT scan could be considered. Bones/joints: Skeletal degenerative changes. IMPRESSION: 1. New opacification in the retrocardiac regions and along the right costophrenic angle that could represent atelectasis or infection. Small right pleural effusion not excluded. 2.The mediastinum and hilar regions appear larger than on prior examination. Lower lung volumes and differences in rotation may be contributing however correlation is recommended. If mediastinal or hilar abnormality is a concern, CT scan could be considered. Other findings as above. THIS REPORT CONTAINS FINDINGS THAT MAY BE CRITICAL TO PATIENT CARE. The findings were verbally communicated via telephone conference with MAXINE CERON at 8:16 PM EDT on 05/19/2018. The findings were acknowledged and understood. Dictated and Authenticated by: Jane Alexander MD. Ordering:FIONA GOODMAN MD
== END 2018-05-19 21:02 | disposition home or self-care (01) ==
PROVIDERS: Emergency Provider Student in an Organized Health Care Education/Training Program; PCP Family Medicine
DX: R94.02 Abnormal brain scan (principal); R53.83 Other fatigue; I10 Essential (primary) hypertension; E11.9 Type 2 diabetes mellitus without complications; Z79.84 Long term (current) use of oral hypoglycemic drugs
CPT/HCPCS: 36415; 80053; 82805; 87040; 93005; 94640; 96361; 96374; 99285; 70450; 71045; 82140; 83605; 84443; 84484; 85025; 93010; J2930; J7620